=== PATIENT | male | born 1975 | race Two or more races ===

== ENCOUNTER 2017-01-22 17:14 | Inpatient (IN) | payer BC ==
[~2017-01-22] VITALS: Ht 175.3 cm; Wt 101.6 kg
[~2017-01-22 17:14] MED LIST: ESCI10TA PO
--- NOTE | 2017-01-22 17:14 | NUR ---
BIBRA 89 FROM HOME FOR SVT, 18MG ADENOSIN GIVEN IN THE FIELD AND PT DID CONVERT FOR 5-6 SECONDS ONLY THEN BACK TO SVT. GOWNED PT. PLACED ON MONITOR. AWAITING MD ORDER
[2017-01-22 17:36] LABS: MEAN CORPUSCULAR HEMOGLOBIN 30 PG (26.0-33.0); MEAN CORPUSCULAR VOLUME 87 fL (80-96)
[2017-01-22] MEDS ORDERED: TRAZ-144 PO (17:55)
[2017-01-22] MEDS ORDERED: ATOR40TA PO (17:55)
[2017-01-22] MEDS ORDERED: DILT180C PO (17:55)
[2017-01-22] MEDS ORDERED: ASPI-991 PO (17:55)
[2017-01-22 18:04] LABS: TROPONIN I 0.025 ng/mL (0.00-0.056)
--- NOTE | 2017-01-22 18:22 | NUR ---
DILTIAZEM DRIP HELD PT CONVERTED
--- NOTE | 2017-01-22 18:22 | NUR ---
REDRAW BLOOD PER DR MCCONNELL
[2017-01-22 18:34] LABS: BAND % (MANUAL) 1 % (0.0-5.0); BASOPHILS % (MANUAL) 0 % (0.0-2.0); EOSINOPHILS % (MANUAL) 2 % (0-4); LYMPHOCYTES % (MANUAL) 20 % (16-48); MONOCYTES % (MANUAL) 2 % (0-11.0); NEUTROPHILS % (MANUAL) 75 (42-76)
[2017-01-22 18:38] LABS: RED BLOOD CELL COUNT(AUTO) 5.58 MIL/uL (4.5-6.0); WHITE BLOOD COUNT (AUTO) 6.8 K/uL (4.3-11.0)
[2017-01-22 18:39] LABS: HEMATOCRIT 48 % (39-51); HEMOGLOBIN 16.6 g/dL (13.5-17.5); MEAN CORPUSCULAR HGB CONC 34 g/dl (31.0-36.0)
[2017-01-22 18:40] LABS: BASOPHILS % (AUTO) 2.6 % (0.0-2.0); EOSINOPHILS % (AUTO) 1.7 % (0.0-6.0); LYMPHOCYTES % (AUTO) 25.7 % (20.0-44.0); MONOCYTES % (AUTO) 7.4 % (2.0-12.0); NEUTROPHILS # (AUTO) 4.2 /CMM (1.8-8.9); NEUTROPHILS % (AUTO) 62.6 % (43.0-81.0); PLATELET COUNT (AUTO) 233 /CMM (150-450); RDW COEFFICIENT OF VARIATION 12.8 (11.5-15.0)
[2017-01-22 18:41] LABS: BASOPHILS # (AUTO) 0.2 /CMM (0.0-0.2); EOSINOPHILS # (AUTO) 0.1 /CMM (0.0-0.7); LYMPHOCYTES # (AUTO) 1.8 /CMM (0.8-4.8); MONOCYTES # (AUTO) 0.5 /CMM (0.1-1.30)
[2017-01-22 18:54] LABS: CREATININE 1.1 mg/dL (0.6-1.3); POTASSIUM 3.9 mmol/L (3.5-5.1)
--- NOTE | 2017-01-22 18:57 | NUR ---
BLOOD READY PER BLOOD BANK
[2017-01-22 18:58] LABS: INR 1.28 (0.87-1.13); PROTHROMBIN TIME 13.3 SECS (9.5-12.7)
[2017-01-22 19:01] LABS: ALBUMIN 3.1 g/dL (3.4-5.0); BILIRUBIN,TOTAL 0.2 mg/dL (0.2-1.0); TOTAL PROTEIN, SERUM 6.7 g/dL (6.4-8.2)
--- NOTE | 2017-01-22 19:15 | NUR ---
GAVE REPORT TO CATY FOR JEZ
--- NOTE | 2017-01-22 19:23 | NUR ---
PATIENT IS AAOX4. NAD NOTED. VSS. DENIES ANY CHEST PAIN/PRESSURE/PALPITATION OR ANY DISCOMFORT AT THIS TIME. AWAITING FOR ROOM NUMBER FOR ADMISSION.
--- NOTE | 2017-01-22 19:35 | NUR ---
TELE 104
--- NOTE | 2017-01-22 19:46 | NUR ---
Report given to Young Stone for tele admission and kathryn.
[2017-01-22 20:08] VITALS: BP 110/75
[2017-01-22 20:10] VITALS: BP 110/75
--- NOTE | 2017-01-22 20:10 | NUR ---
TELE-1/PEDIATRIC ONCOLOGIST RECEIVED PT ACCOMPANIED BY ER STAFF TO BED 104. PT AMBULATED TO BED WITH STEADY GAIT. NO COMPLAINT OF PAIN AT THIS TIME. VSS AFEBRILE. PT SHOWING NSR WITH PAC ON TELE MONITOR. LEFT HAND GAUGE 18 IV PATENT, LEFT FOREARM GAUGE 18 IV PATENT. ASSESSMENT COMPLETE. SKIN ASSESSMENT COMPLETE. PT EDUCATED FOR SMOKING SESSATION. PT ORIENTED TO ROOM AND CALL LIGHT USE. BED IN LOWEST LOCKED POSITION. SIDE RAILS UP. WILL CONTINUE TO MONITOR.
--- NOTE | 2017-01-22 20:12 | NUR ---
Transferred to tele room 104 via als protocol, no incident noted.
--- NOTE | 2017-01-22 22:32 | NUR ---
TELE-1/VETERINARY TECHNOLOGY INSTRUCTOR PT ACCIDENTALLY PULLED OUT LEFT HAND IV WHILE USING REST ROOM. IV REMOVED WITH TIP INTACT. PRESSURE APPLIED. WILL CONTINUE TO MONITOR.
--- NOTE | 2017-01-22 22:35 | NUR ---
TELE-1/JOURNEYMAN MOLDER SPOKE WITH DR. MEZA REGARDING PT GOING IN AND OUT OF SVT HIGH 180BMP FOR THE LAST [address] MEZA INFORMED ME TO KEEP AN EYE ON IT AND CONTINUE TO MONITOR. PT IS ASYMPTOMATIC AT THIS TIME.
[2017-01-23] VITALS (7 sets, daily range): BP systolic 103–119; BP diastolic 69–77
--- NOTE | 2017-01-23 07:00 | NUR ---
RN NOTES RECEIVED PT ON BED, A/Ox4, RESPIRATION EVEN AND UNLABORED, ON TELE SR IN 60'S, NO DISTRESS, LEFT FA IV SITE G 18 CDI, WITH NS AT 75CC/HR, SR UP x3, CALL LIGHT WITHIN EASY REACH, BED LOCKED AND IN LOWEST POSITION , WILL CONTINUE TO MONITOR PT CLOSELY AND NOTIFY MD FOR ANY SIGNIFICANT CHANGES.
[2017-01-23 07:26] LABS: BASOPHILS % (AUTO) 0.5 % (0.0-2.0); EOSINOPHILS # (AUTO) 0.2 /CMM (0.0-0.7); EOSINOPHILS % (AUTO) 3.2 % (0.0-6.0); HEMATOCRIT 50 % (39-51); HEMOGLOBIN 16.8 g/dL (13.5-17.5); LYMPHOCYTES # (AUTO) 2.2 /CMM (0.8-4.8); LYMPHOCYTES % (AUTO) 36.9 % (20.0-44.0); MEAN CORPUSCULAR HEMOGLOBIN 30 PG (26.0-33.0); MEAN CORPUSCULAR HGB CONC 34 g/dl (31.0-36.0); MEAN CORPUSCULAR VOLUME 87 fL (80-96); MONOCYTES # (AUTO) 0.5 /CMM (0.1-1.30); MONOCYTES % (AUTO) 7.9 % (2.0-12.0); NEUTROPHILS % (AUTO) 51.5 % (43.0-81.0); PLATELET COUNT (AUTO) 226 /CMM (150-450); RDW COEFFICIENT OF VARIATION 13.9 (11.5-15.0); RED BLOOD CELL COUNT(AUTO) 5.68 MIL/uL (4.5-6.0); WHITE BLOOD COUNT (AUTO) 5.9 K/uL (4.3-11.0)
[2017-01-23 07:47] LABS: THYROID STIMULATING HORMONE 1.035 uIU/mL (0.358-3.74)
[2017-01-23 07:51] LABS: CALCIUM, SERUM 7.9 mg/dL (8.5-10.1); MAGNESIUM 1.9 mg/dL (1.8-2.4); PHOSPHORUS 3.5 mg/dL (2.5-4.9); POTASSIUM 3.9 mmol/L (3.5-5.1)
--- NOTE | 2017-01-23 13:00 | NUR ---
RN NOTES PT STATED DURING ECHOCARDIOGRAM HE FELT SLIGHT TINGLING ON HIS LEFT HAND FINGERS FOR A FEW SECOND. DR MCCOLLUM PAGED AND NOTIFIED , PT STATED FEED NORMAL NOW , NEURO CHECKS ASSESSMENT DONE PER MD ORDER ,CONTINUE TO MONITOR PT CLOSELY AND NOTIFY MD FOR ANY CHANGES .
--- NOTE | 2017-01-23 18:22 | NUR ---
RN NOTES PT NAZIA ANY DISTRESS, NO NEUROLOGICAL CHANGES NOTED , PT NAZIA ANY NUMBNESS AND TINGLING . UP AND WALKING AROUND NURSING STATION .
[2017-01-24] VITALS (8 sets, daily range): BP systolic 102–116; BP diastolic 64–83
[2017-01-24 06:46] LABS: CALCIUM, SERUM 8.3 mg/dL (8.5-10.1); POTASSIUM 3.7 mmol/L (3.5-5.1)
--- NOTE | 2017-01-24 18:56 | NUR ---
PT C/O CHEST PAIN CALLED DR. MCCOLLUM ORDERED STAT EKG, TROPONIN SERIES. OFFERED NITRO PT STATES ALREADY HAS HEADACHE DOES NOT WANT NITRO. PT BP 102/71 P 69 SPO2 95% ON RA. WILL CONTINUE TO MONITOR CLOSELY. PT NOT DIAPHORETIC AND NO SOB. CHARGE NURSE SOON RN NOTIFIED.
--- NOTE | 2017-01-24 19:45 | NUR ---
PT PUT ON 2L NC FOR COMFORT.
[2017-01-25] VITALS: BP 106/74
[2017-01-25 04:00] VITALS: BP 99/66
[2017-01-25 08:00] VITALS: BP 116/80
[2017-01-25 12:00] VITALS: BP 118/80
[2017-01-25] MEDS ORDERED: DILT240C88 PO (14:59)
[2017-01-25 16:00] VITALS: BP 115/65
[2017-01-25 17:24] VITALS: BP 115/65
== END 2017-01-25 18:26 | disposition home or self-care (01) | DRG 309 ==
LOC: ER 17:19 → TELE1 20:16
DX: I47.1 Supraventricular tachycardia (principal); E44.1 Mild protein-calorie malnutrition; I10 Essential (primary) hypertension; E78.5 Hyperlipidemia, unspecified; F17.210 Nicotine dependence, cigarettes, uncomplicated; F32.9 Major depressive disorder, single episode, unspecified; Z79.899 Other long term (current) drug therapy; E88.09 Other disorders of plasma-protein metabolism, not elsewhere classified; Z68.33 Body mass index [BMI] 33.0-33.9, adult
CPT/HCPCS: 36415; 71010-TC; 80048-TC; 80061-TC; 80076-TC; 82962-TC; 83735-TC; 84100-TC; 84443-TC; 84484-TC; 85025-TC; 85730-TC; 86850-TC; 86921-TC; 87081-TC; 93307-TC; 94799-TC; A4606; J0153; J3490; J7030; J7060; Z7610

== ENCOUNTER 2020-03-27 11:57 | Emergency (ER) | payer BC ==
[~2020-03-27] VITALS: Ht 185.4 cm; Wt 107.5 kg
[~2020-03-27 11:57] MED LIST changes: +ASPI-1420 PO; +ATOR40TA PO; +DILT240C88 PO; +TRAZ-182 PO
[2020-03-27 12:03] VITALS: BP 104/77
--- NOTE | 2020-03-27 13:23 | NUR ---
COVID SWAB & THROAT SWAB DONE & SENT TO LAB.
--- NOTE | 2020-03-27 14:21 | NUR ---
Patient discharged to home in stable condition. Written and verbal after care instructions given. Patient verbalizes understanding of instruction.
--- NOTE | 2020-03-28 19:09 | NUR ---
PATIENT MADE AWARE OF POSITIVE COVID RESULT, INFORMED TO QUARANTINE X14 DAYS.
== END 2020-03-27 14:23 | disposition home or self-care (01) ==
LOC: ER 11:58
DX: U07.1 COVID-19 (principal); I10 Essential (primary) hypertension
CPT/HCPCS: 71045; 87070; 87880; 99284; C9803; U0003; 86403-TC